=== PATIENT | male | born 1985 | race Caucasian/White ===

== ENCOUNTER 2018-12-09 08:47 | Emergency (ER) | payer SELFPAY ==
[~2018-12-09] VITALS: Ht 180.3 cm; Wt 106.0 kg
[2018-12-09] MEDS ORDERED: ONDANSETRON 4MG ODT PO ONE (10:15)
[2018-12-09] MEDS ORDERED: HYDROCODONE/ACETAMINOPHEN 5/325MG TABLET PO ONE (10:15)
[2018-12-09] MEDS ORDERED: LIDOCAINE HCL/PF 1% 10 MG/ML 5ML VIAL IJ ONE (10:45)
[2018-12-09] MEDS ORDERED: BACITRACIN ZINC OINT UDPKT TOP ONE (10:45)
[2018-12-09] MEDS ORDERED: TETANUS, DIPHTHERIA, PERTUSSIS VAC/PF 0.5ML (>7YR OLD) IM ONE (10:45)
[2018-12-09 12:00] VITALS: BP 122/74
== END 2018-12-09 12:00 | disposition home or self-care (01) ==
LOC: ER 08:47
DX: S61.211A Laceration without foreign body of left index finger without damage to nail, initial encounter (principal); F15.10 Other stimulant abuse, uncomplicated; F10.20 Alcohol dependence, uncomplicated; W45.8XXA Other foreign body or object entering through skin, initial encounter; Y93.89 Activity, other specified; Y92.89 Other specified places as the place of occurrence of the external cause; Y99.8 Other external cause status; Y90.9 Presence of alcohol in blood, level not specified
CPT/HCPCS: 12002; 73130; 90471; 90715; 99284; J3490; Q0162

== ENCOUNTER 2018-12-11 10:48 | Emergency (ER) | payer SELFPAY ==
[~2018-12-11] VITALS: Ht 175.3 cm; Wt 109.0 kg
[2018-12-11] MEDS ORDERED: BACITRACIN ZINC OINT UDPKT TOP ONE (11:15)
[2018-12-11 11:36] VITALS: BP 119/68
== END 2018-12-11 13:11 | disposition home or self-care (01) ==
LOC: ER 13:07
DX: S61.211D Laceration without foreign body of left index finger without damage to nail, subsequent encounter (principal); X58.XXXD Exposure to other specified factors, subsequent encounter
CPT/HCPCS: 99282